=== PATIENT | male | born 1990 | race Caucasian/White ===

== ENCOUNTER 2023-02-25 11:54 | Outpatient (REF) | payer MEDICAID, SELFPAY ==
[2023-02-25 13:21] LABS: MANUAL DIFF FLAG NO
[2023-02-25 13:45] LABS: Basophils Absolute Auto 0.1 X10*3/uL (0.0-0.2); Basophils Percent Auto 0.5 % (0-2); Eosinophils Absolute Auto 0.2 X10*3/uL (0.0-0.4); Eosinophils Percent Auto 1.9 % (0-4); Hematocrit 44.5 % (42.0-52.0); Hemoglobin 15.2 g/dl (14.0-18.0); Imm Gran Abs Auto 0.04 X10*3/uL (0.00-0.03); Imm Gran Pct Auto 0.4 % (0.0-0.4); Lymphocytes Absolute Auto 1.8 X10*3/uL (1.2-4.9); Lymphocytes Percent Auto 18.3 % (20-40); Mean Corpuscular HGB Conc 34.2 g/dl (31.0-36.0); Mean Corpuscular Hemoglobin 34.9 pg (27.0-33.0); Mean Corpuscular Volume 102.1 fL (80.0-98.0); Mean Platelet Volume 10.3 fL (9.4-12.4); Monocytes Absolute Auto 0.9 X10*3/uL (0.1-1.2); Monocytes Percent Auto 9.4 % (2-11); Neutrophils Absolute Auto 6.6 x10*3/uL (2.0-8.3); Neutrophils Percent Auto 69.5 % (45-73); Platelet Count 302 X10*3/uL (160-400); Red Blood Count 4.36 X10*6/uL (4.60-5.80); Red Cell Distribution Width 11.9 % (11.0-16.0); White Blood Count 9.5 X10*3/uL (4.8-10.8)
[2023-02-25 14:18] LABS: Alanine Aminotransferase 32 U/L (0-40); Albumin Level 4.5 g/dL (3.5-5.0); Alkaline Phosphatase 62 U/L (39-117); Anion Gap 13 (12-20); Aspartate Amino Transferase 27 U/L (5-37); Bilirubin Total 0.5 mg/dL (0.0-1.0); Blood Urea Nitrogen 11 mg/dL (9-16); Calcium 9.1 mg/dL (8.4-10.2); Carbon Dioxide 28 mmol/L (22-29); Chloride 105 mmol/L (96-108); Estimated Glomerular Filt Rate > 60; Glucose Random 78 mg/dL (60-115); Sodium 142 mmol/L (135-145); Total Protein 7.5 g/dL (6.5-8.0)
[2023-02-26 13:48] LABS: HIV RNA PCR Qn Copies 69 copies/mL (NOT DETECTED); HIV RNA PCR Qn Log Copies 1.84 (NOT DETECTED)
[2023-02-27 07:03] LABS: Absolute CD3 Count 1430 cells/uL (840-3060); Absolute CD4 Count 876 cells/uL (490-1740); Absolute CD8 Count 509 cells/uL (180-1170); Absolute Lymphocytes 1855 cells/uL (850-3900); CD4 CD8 Ratio 1.72 (0.86-5.00); Percent CD3 Cells 77 % (57-85); Percent CD4 Cells 47 % (30-61); Percent CD8 Cells 27 % (12-42)
[2023-02-27 12:19] LABS: RPR Rapid Plasma Reagin REACTIVE (NON-REACTIVE)
== END 2023-02-25 11:55 | disposition home or self-care (01) ==
LOC: HO.HHCL 11:54
PROVIDERS: Visit Provider Internal Medicine
DX: B20 Human immunodeficiency virus [HIV] disease (principal)
CPT/HCPCS: 36415; 80053; 85025; 86359; 86360; 86592; 86593; 87536

== ENCOUNTER 2023-04-03 11:50 | Outpatient (REF) | payer MEDICAID, SELFPAY ==
[2023-04-04 03:58] LABS: CT PCR NOT DETECTED (Not Detect.); NG PCR NOT DETECTED (Not Detect.)
[2023-04-07 14:53] LABS: N. gonorrhoeae RNA TMA, Throat NOT DETECTED
== END 2023-04-03 11:51 | disposition home or self-care (01) ==
LOC: HO.HHCL 11:50
PROVIDERS: Visit Provider Internal Medicine
DX: Z11.3 Encounter for screening for infections with a predominantly sexual mode of transmission (principal); J02.9 Acute pharyngitis, unspecified
CPT/HCPCS: 0353U; 36415; 87591

== ENCOUNTER 2023-04-04 17:58 | Outpatient (REF) | payer MEDICAID, SELFPAY | END 2023-04-04 17:59 | disposition home or self-care (01) | LOC: HO.HHCLNP 17:58 | PROVIDERS: Visit Provider Internal Medicine | DX: Z13.89 Encounter for screening for other disorder (principal) ==

== ENCOUNTER 2023-07-02 18:40 | Emergency (ER) | payer OTHER, SELFPAY ==
--- NOTE | ~2023-07-02 | XR_ITS ---
EXAMINATION: XR LUMBOSACRAL SPINE CLINICAL INFORMATION: Low back pain COMPARISON: None available. TECHNIQUE: Three views of the lumbosacral spine. FINDINGS: The vertebral bodies and posterior elements are normal. The disc spaces are preserved and the vertebral alignment is normal. The paraspinal soft tissues are normal. XR/XR lumbar spine 2-3V IMPRESSION: Unremarkable examination.
[2023-07-02 19:16] VITALS: BP 111/66; PULSE 91; RESP 18; TEMP 36.7; O2SAT 98; BMI 21.8
--- NOTE | 2023-07-02 19:16 | ED_ITS ---
HPI - Back Pain/Injury General Chief Complaint: Back Pain/Injury Stated Complaint: lower back pain Time Seen by Provider: 07/02/23 20:09 Source: patient Mode of arrival: ambulatory Limitations: no limitations History of Present Illness HPI Narrative: Patient is a 32-year-old male presenting to the emergency department with complaint of low back pain for the past 2 weeks after moving something at work. [place] a crack sensation at that time and pain since. Pain radiating down left leg to knee. Denies saddle anesthesia or bowel or bladder incontinence. Denies fevers or IV drug use. Has been taking Tylenol. MD elicited complaint: back pain Onset (ago): week(s) Timing: constant Severity: severe Similar Symptoms Previously: No Quality: burning Location: left lower back Radiation: left upper leg Context: while lifting Associated symptoms: denies other symptoms Treatments prior to arrival: acetaminophen Work related injury: Yes Related Data Previous Rx's Medication Instructions Recorded lidocaine 5 % topical patch 1 patch topical DAILY #15 ea 07/02/23 naproxen 500 mg tablet 500 mg PO BID #14 tabs 07/02/23 prednisone 20 mg tablet 40 mg (2 x 20 mg) PO DAILY #10 tabs 07/02/23 Allergies Allergy/AdvReac Type Severity Reaction Status Date / Time No Known Allergies Allergy Verified 07/02/23 19:16 Review of Systems Review of Systems: As per HPI. Yes all other systems are reviewed and are negative Constitutional: Constitutional: Reports as per HPI Physical Exam Vital Signs: Vital Signs: Last Vital Signs Temp 98.1 F 07/02/23 19:16 Pulse 91 07/02/23 19:16 Resp 18 07/02/23 19:16 BP 111/66 07/02/23 19:16 Pulse Ox 98 07/02/23 19:16 BMI result Body Mass Index 21.8 Vital signs have been reviewed and appear to be correct. Blood pressure normal. Heart rate normal. Respiratory rate normal. Temperature normal. Oxygen saturation normal. Const: General: cooperative, healthy appearing and no acute distress Orientation/consciousness: oriented to person, oriented to place, oriented to time and patient oriented x3 Limitations: no limitations HEENT: Head: Yes normocephalic and Yes atraumatic Ears: external ears normal General nose exam: Normal external nose present Face and sinus: Yes face symmetric Mouth: oropharynx normal and moist mucous membranes Throat: Yes uvula midline Eyes: Pupils: Equal, round and reactive pupils present Neck: Neck: Yes normal visual inspection, Yes no meningeal signs and Yes supple Resp: Effort & Inspection: normal respiratory effort and able to speak in complete sentences Auscultation: clear to auscultation bilaterally Cardio: Rate: regular rate Rhythm: regular rhythm Heart sounds: S1 normal heart sound present and S2 normal heart sound present GI: Palpation (GI): Soft to palpation and nontender Auscultation: normoactive bowel sounds : General: Yes no CVA tenderness Back/Spine/Pelvis: Back: no CVA tenderness Cervical Spine: normal cervical lordosis and cervical ROM normal Thoracic/Lumbar Spine: thoracic and lumbar spine normal to inspection, thoraco-lumbar ROM normal, pain with thoraco-lumbar ROM, paraspinal muscle tenderness on the left in the mid lumbar, No thoracic spinal tenderness, No lumbar spinal tenderness and straight leg raise positive left Skin: General skin exam: elasticity normal and turgor normal Neuro: General: oriented to person, oriented to place, oriented to time, patient oriented x3, gait normal, tone normal, moves all extremities, Normal light touch and pain sensation, no meningeal signs, no focal motor deficits, CN's II-XI intact bilaterally and deep tendon reflexes 2+ bilaterally Cranial nerves: Yes Equal, round and reactive pupils present Cognition (Neuro): normal cognition Motor exam (neuro): 5/5 motor strength present throughout, Normal motor muscle tone present throughout and Motor abnormalities not present Sensory Exam: Normal double simultaneous stimulation for sensation Extrem: General: Yes full ROM, Yes no pedal edema and Yes no calf tenderness Psych: Mental Status: mental status grossly normal Affect: normal affect Thought process: Normal thought process present Medical Decision Making Medical Decision Making MDM Narrative: Patient is a 32-year-old male presenting to the emergency department with complaint of low back pain for the past 2 weeks after moving something at work. On exam patient is awake, A+Ox3, VS WNL, afebrile, normal neurological exam without focal deficits, physical exam findings as above. Given reported symptoms and physical exam findings, initial differential includes lumbar radiculopathy, lumbar strain, vertebral fracture, disc herniation. Do not suspect malignancy/mass, SEA, cauda equina/cord compression. X-ray lumbar spine is unremarkable, no evidence of fracure. My interpretation is in agreement with the radiologist's interpretation. Will treat patient with course of prednisone, naproxen, and topical lidocaine patches. Instructed patient to follow up with PCP and patient states he has appointment with PCP tomorrow. Return precautions discussed. Patient verbalized understanding of and agreement with plan. Differential Diagnosis Differential Diagnoses: The differential diagnosis associated with the presentation includes As per MDM Independent Interpretation I performed an independent interpretation of an: Plain X-Ray Interpretation: No evidence of vertebral fracture Radiology Impression Discussion of test interpretation with radiology: I have reviewed the radiologist's reading. Radiologist Impression: XR/XR lumbar spine 2-3V IMPRESSION: Unremarkable examination. External Record Review External record reviewed: Inpatient record, Office record and Outpatient record Prescription Management I considered prescription management with: Pain Medication and Other Discharge Plan Discharge Clinical Impression: Lumbar radiculopathy Patient Disposition: Home, Self-Care Instructions: Acute Low Back Pain (ED), Lumbar Radiculopathy (ED), Lower Back Exercises (ED) Additional Instructions: You were evaluated in the emergency department today for back pain. Your evaluation did not show signs of medical conditions requiring emergent intervention at this time. We recommended that you use ibuprofen or Tylenol per package directions every 6 hours as needed for pain. If necessary, you can alternate these medications so that you take one medication every 3 hours. For instance, at noon take ibuprofen, then at 3:00 p.m. take Tylenol, then at 6:00 p.m. take ibuprofen. You have been prescribed a short course of steroids to decrease inflammation. You have been prescribed 5% topical lidocaine patches which you can wear for up to 12 hours in a 24 hour period. Do not apply heat directly over the patches. Please schedule an appointment for follow-up with your primary care physician this week for further evaluation of your symptoms. Return to the emergency department if you experience worsening back pain, difficulty walking, fevers, numbness, tingling, incontinence, groin numbness or tingling, or any other concerning symptoms. Prescriptions: New prednisone 20 mg tablet 40 mg PO DAILY Qty: 10 0RF lidocaine 5 % adhesive patch,medicated 1 patch topical DAILY Qty: 15 0RF Rx Instructions: leave on most painful area for up to 12 hrs naproxen 500 mg tablet 500 mg PO BID Qty: 14 0RF
== END 2023-07-02 20:27 | disposition home or self-care (01) ==
PROVIDERS: Emergency Provider Emergency Medicine Emergency Medical Services
DX: M54.16 Radiculopathy, lumbar region (principal)
CPT/HCPCS: 72100; 99283; 99284

== ENCOUNTER 2023-08-29 19:35 | Outpatient (REF) | payer OTHER, SELFPAY | END 2023-08-29 19:36 | disposition home or self-care (01) | LOC: HO.HHCLNP 19:35 | PROVIDERS: Visit Provider Emergency Medicine | DX: J02.9 Acute pharyngitis, unspecified (principal) | CPT/HCPCS: 87070; 87147 ==

== ENCOUNTER 2023-09-22 09:00 | Outpatient (REF) | payer OTHER, SELFPAY ==
[2023-09-22 11:30] LABS: MANUAL DIFF FLAG NO
[2023-09-22 11:42] LABS: Basophils Percent Auto 0.5 % (0-2); Eosinophils Absolute Auto 0.1 X10*3/uL (0.0-0.4); Eosinophils Percent Auto 1.6 % (0-4); Hematocrit 45.7 % (42.0-52.0); Hemoglobin 16.2 g/dl (14.0-18.0); Imm Gran Abs Auto 0.03 X10*3/uL (0.00-0.03); Imm Gran Pct Auto 0.3 % (0.0-0.4); Lymphocytes Absolute Auto 3.1 X10*3/uL (1.2-4.9); Lymphocytes Percent Auto 34.7 % (20-40); Mean Corpuscular HGB Conc 35.4 g/dl (31.0-36.0); Mean Corpuscular Hemoglobin 34.2 pg (27.0-33.0); Mean Corpuscular Volume 96.6 fL (80.0-98.0); Mean Platelet Volume 10.3 fL (9.4-12.4); Monocytes Absolute Auto 0.7 X10*3/uL (0.1-1.2); Monocytes Percent Auto 7.5 % (2-11); Neutrophils Absolute Auto 4.9 x10*3/uL (2.0-8.3); Neutrophils Percent Auto 55.4 % (45-73); Platelet Count 357 X10*3/uL (160-400); Red Blood Count 4.73 X10*6/uL (4.60-5.80); Red Cell Distribution Width 11.7 % (11.0-16.0); White Blood Count 8.8 X10*3/uL (4.8-10.8)
[2023-09-22 12:13] LABS: Alanine Aminotransferase 38 U/L (0-40); Albumin Level 4.5 g/dL (3.5-5.0); Alkaline Phosphatase 71 U/L (39-117); Anion Gap 14 (12-20); Aspartate Amino Transferase 29 U/L (5-37); Bilirubin Total 0.6 mg/dL (0.0-1.0); Blood Urea Nitrogen 10 mg/dL (9-16); Calcium 9.6 mg/dL (8.4-10.2); Carbon Dioxide 26 mmol/L (22-29); Chloride 105 mmol/L (96-108); Cholesterol 173 mg/dL (<200); Estimated Glomerular Filt Rate > 60; Glucose Random 95 mg/dL (60-115); HDL Cholesterol 36 mg/dL (>40); LDL Cholesterol Calculated 102 mg/dL (<100); Potassium 4.1 mmol/L (3.3-5.1); Sodium 141 mmol/L (135-145); Total Protein 7.6 g/dL (6.5-8.0); Triglycerides 177 mg/dL (<150)
[2023-09-22 12:26] LABS: Reflex LDLD? No
[2023-09-23 09:28] LABS: ~HepC Num1 0.12 S/CO (0.00-0.79); ~Hepatitis C Antibody Nonreactive (Nonreactive)
[2023-09-23 10:58] LABS: Absolute CD3 Count 2651 cells/uL (840-3060); Absolute CD4 Count 1655 cells/uL (490-1740); Absolute CD8 Count 905 cells/uL (180-1170); Absolute Lymphocytes 3308 cells/uL (850-3900); CD4 CD8 Ratio 1.83 (0.86-5.00); Percent CD3 Cells 80 % (57-85); Percent CD4 Cells 50 % (30-61); Percent CD8 Cells 27 % (12-42)
[2023-09-24 10:44] LABS: HIV RNA PCR Qn Copies 297 copies/mL (NOT DETECTED); HIV RNA PCR Qn Log Copies 2.47 (NOT DETECTED)
[2023-09-25 08:04] LABS: TS Negative Control Passed; TS Panel A 0; TS Panel B 0; TS Positive Control Passed; TSpotTB Negative (Negative)
== END 2023-09-22 09:01 | disposition home or self-care (01) ==
LOC: HO.HHCL 09:00
PROVIDERS: Visit Provider Internal Medicine
DX: B20 Human immunodeficiency virus [HIV] disease (principal)
CPT/HCPCS: 36415; 80053; 80061; 85025; 86359; 86360; 86481; 86803; 87536

== ENCOUNTER 2023-10-09 15:58 | Outpatient (REF) | payer OTHER, SELFPAY ==
[2023-10-10 16:45] LABS: Appearance Urine Clear; Color Urine Yellow; Glucose Urine UA Negative (Negative); Leukocyte Esterase Urine Negative (Negative); Nitrite Urine Negative (Negative); Specific Gravity - Urine 1.025 (1.005-1.025); Urine Blood Negative (Negative); Urine Ketones Negative (Negative); Urine Protein Negative (Neg-Trace)
[2023-10-10 16:48] LABS: Bacteria Urine None Seen (None Seen); Hyaline Casts Urine 0-2 /LPF (0-2); RBC Urine 0-2 /HPF (0-2); Squamous Epithelial Cell Urine 0-2 /HPF (0-2); WBC Urine 0-5 /HPF (0-5)
[2023-10-10 18:01] LABS: CT PCR NOT DETECTED (Not Detect.); NG PCR NOT DETECTED (Not Detect.)
[2023-10-14 13:58] LABS: C. Trachomatis RNA TMA, Throat NOT DETECTED; N. gonorrhoeae RNA TMA, Throat NOT DETECTED
[2023-10-15 11:29] LABS: C.Trachomatis RNA TMA, Rectal NOT DETECTED; N.Gonorrhoeae RNA TMA, Rectal NOT DETECTED
== END 2023-10-09 15:59 | disposition home or self-care (01) ==
LOC: HO.HHCLNP 15:58
PROVIDERS: Visit Provider Student in an Organized Health Care Education/Training Program
DX: Z00.00 Encounter for general adult medical examination without abnormal findings (principal)
CPT/HCPCS: 0353U; 81001; 87491; 87591

== ENCOUNTER 2023-11-20 09:05 | Outpatient (REF) | payer OTHER, SELFPAY ==
[2023-11-20 11:25] LABS: Appearance Urine Clear; Color Urine Yellow; Glucose Urine UA Negative (Negative); Leukocyte Esterase Urine Negative (Negative); Nitrite Urine Negative (Negative); Specific Gravity - Urine <= 1.005 (1.005-1.025); Urine Blood Negative (Negative); Urine Ketones Negative (Negative); Urine Protein Negative (Neg-Trace)
[2023-11-20 11:30] LABS: Bacteria Urine None Seen (None Seen); Hyaline Casts Urine 0-2 /LPF (0-2); RBC Urine 0-2 /HPF (0-2); Squamous Epithelial Cell Urine 0-2 /HPF (0-2); WBC Urine 0-5 /HPF (0-5)
[2023-11-20 11:35] LABS: Estimated Average Glucose 85 mg/dL; Hemoglobin A1c % 4.6 % (<6.0)
[2023-11-20 11:56] LABS: TSH reflex Free T4 3.48 uIU/mL (0.32-4.0)
[2023-11-20 12:00] LABS: Hepatitis A Antibody IgG Nonreactive (Nonreactive); ~Hepatitis A Antibody IgG 0.35 S/CO (0.00-0.99)
[2023-11-20 12:02] LABS: Syphilis Screen Reactive (Nonreactive)
[2023-11-20 12:20] LABS: HBc Num1 0.09 S/CO (0.00-0.79); HBsAGNum1 0.37 S/CO (0.00-0.99); Hepatitis B Core Antibody Nonreactive (Nonreactive); Hepatitis B Surface Antigen Negative (Negative); ~Hepatitis B Surface Antibody REACTIVE (Nonreactive)
[2023-11-27 14:50] LABS: RPR Quantitative Reactive 1:8 (Nonreactive); T.Pallidum Particle Agg Test Reactive (Nonreactive)
== END 2023-11-20 09:06 | disposition home or self-care (01) ==
LOC: HO.HHCL 09:05
PROVIDERS: Internal Medicine; Visit Provider Student in an Organized Health Care Education/Training Program
DX: Z00.00 Encounter for general adult medical examination without abnormal findings (principal); B20 Human immunodeficiency virus [HIV] disease; Z13.1 Encounter for screening for diabetes mellitus
CPT/HCPCS: 36415; 81001; 83036; 84443; 86592; 86704; 86706; 86708; 86780; 87340

== ENCOUNTER 2024-02-20 18:36 | Emergency (ER) | payer OTHER, SELFPAY ==
[2024-02-20 18:38] VITALS: BP 120/69; PULSE 90; RESP 18; TEMP 36.4; O2SAT 96; BMI 22.7
--- NOTE | 2024-02-20 20:22 | ED.BURNSMOKE ---
HPI - Burn/Smoke Inhalation General Chief complaint: Burn/Smoke Inhalation Stated complaint: right leg burn Time Seen by Provider: 02/20/24 20:07 Source: patient Mode of arrival: ambulatory Limitations: no limitations History of Present Illness HPI Narrative: Patient comes to the emergency room complaining of a burn to the right lower extremity on the anterior aspect. Patient states that earlier today, approximately 12 hours ago, patient was cooking, spilled grease down his leg. Patient states that he applied baby's barrier cream and Vaseline. Patient states that he got his Tdap booster approximately 2 years ago. Patient denies any other injuries. Related Data Previous Rx's ?Medication ?Instructions ?Recorded lidocaine 5 % topical patch 1 patch topical DAILY #15 ea 07/02/23 naproxen 500 mg tablet 500 mg PO BID #14 tabs 07/02/23 prednisone 20 mg tablet 40 mg (2 x 20 mg) PO DAILY #10 tabs 07/02/23 bacitracin 500 unit/gram topical 1 appl topical TID #28 grams 02/20/24 ointment ibuprofen 600 mg tablet 600 mg PO Q8H PRN fever or pain 02/20/24 #20 tabs Allergies Allergy/AdvReac Type Severity Reaction Status Date / Time No Known Allergies Allergy Verified 02/20/24 18:41 Review of Systems Review of Systems: Constitutional : No Weight loss, No Fever, No Chills, No Night Sweats, No Fatigue, No Malaise ENT/Mouth : No Hearing loss, No Ear Pain, No Nasal Congestion, No Sinus Pain, No Hoarseness, No sore throat, No Rhinorrhea, No Swallowing Difficulty Eyes: No Eye Pain, No Swelling, No Redness, No Foreign Body, No Discharge, No Vision Changes Cardiovascular : No Chest Pain, No SOB, No Dyspnea on Exertion, No Orthopnea, No Edema, No Palpitations Respiratory : No Cough, No Sputum, No Wheezing, No Smoke Exposure, No Dyspnea Gastrointestinal : No Nausea, No Vomiting, No Diarrhea, No Constipation, No abdominal Pain, No Hematochezia, No Melena Genitourinary : no irregular bleeding, No Dysuria, No Urinary Frequency, No Hematuria, No Urinary Incontinence, No Urgency, No Flank Pain, No Urinary Flow Changes, No Hesitancy Musculoskeletal : No joint pain, No Myalgias, No Joint Swelling Skin : Complaining of skin burn with grease on the anterior aspect of the right leg Neuro : No Weakness, No Numbness, No Paresthesias, No Loss of Consciousness, No Dizziness, No Headache Psych : No Anxiety/Panic, No Depression, No SI/HI/AH/VH, No Social Issues, Heme/Lymph: No Bruising, No Bleeding,No Lymphadenopathy Endocrine : No Polyuria, No Polydipsia, No Temperature Intolerance PMFSH Social History Social History Advance Directives: No Advance Directives Information Provided: Yes Do you have a plan to hurt others: No Plan Physical Exam Vital Signs: Vital Signs: Last Vital Signs Temp 97.6 F 02/20/24 18:38 Pulse 90 02/20/24 18:38 Resp 18 02/20/24 18:38 BP 120/69 02/20/24 18:38 Pulse Ox 96 02/20/24 18:38 O2 Del Method Room Air 02/20/24 18:38 BMI result Body Mass Index 22.7 Const: Other: Appearance: Alert. Oriented X3. No acute distress. Eyes: Pupils equal, round and reactive to light. ENT: Pharynx normal. Neck: Normal inspection. Neck supple. No lymph nodes noted. No crepitus CVS: Normal heart rate and rhythm. Pulses normal. Normal S1 and S2 Respiratory: No respiratory distress. Breath sounds normal. No Wheezing. No rales Abdomen: Soft and nontender. No rigidity. No distention. Skin: Skin warm and dry. Normal skin color. Normal skin turgor. See lower extremity below Extremities: No lower extremity edema. Left leg within normal limits, right leg there blisters along the vicente area, no harrington to the posterior aspect, not a circumferential burn Neuro: Oriented X 3. No motor deficit. No sensory deficit. Moving all extremities. No slurred speech. CN 2 through 12 grossly intact Psych: calm, cooperative, normal affect Medical Decision Making Medical Decision Making MDM Narrative: Patient has a second-degree burn to the anterior aspect of the right lower extremity. Patient is up-to-date with Tdap Patient declined IM medication for pain control -the ED, patient's was cleaned, which was covered with Vaseline and barrier cream. Then, bacitracin was applied. Discharge Plan Discharge Clinical Impression: Thermal injury, Skin burn Patient Disposition: Home, Self-Care Instructions: Second Degree Burn (ED) Additional Instructions: Please follow-up with your primary care physician tomorrow. If you have any worsening or new symptoms, please return to the emergency room or call 911 Prescriptions: New bacitracin 500 unit/gram ointment 1 appl topical TID Qty: 28 0RF ibuprofen 600 mg tablet 600 mg PO Q8H PRN (Reason: fever or pain) Qty: 20 0RF No Action prednisone 20 mg tablet 40 mg PO DAILY Qty: 10 0RF lidocaine 5 % adhesive patch,medicated 1 patch topical DAILY Qty: 15 0RF Rx Instructions: leave on most painful area for up to 12 hrs naproxen 500 mg tablet 500 mg PO BID Qty: 14 0RF Print Language: Montserratian
[2024-02-20 20:23] VITALS: BP 109/72; PULSE 81; RESP 14; TEMP 36.1; O2SAT 97
[2024-02-20] MEDS: Bacitracin Oint 0.9 GM PACKET 2 APPL TOPICAL (20:40)
[2024-02-20 20:59] VITALS: BP 109/72; PULSE 81; RESP 14; TEMP 36.1; O2SAT 97
== END 2024-02-20 20:59 | disposition home or self-care (01) ==
PROVIDERS: Emergency Provider Emergency Medicine; PCP Student in an Organized Health Care Education/Training Program
DX: T24.001A Burn of unspecified degree of unspecified site of right lower limb, except ankle and foot, initial encounter (principal); X19.XXXA Contact with other heat and hot substances, initial encounter
CPT/HCPCS: 99283

== ENCOUNTER 2024-03-18 14:17 | Outpatient (REF) | payer OTHER, SELFPAY ==
[2024-03-18 16:13] LABS: MANUAL DIFF FLAG NO
[2024-03-18 16:21] LABS: Basophils Percent Auto 0.4 % (0-2); Eosinophils Absolute Auto 0.1 X10*3/uL (0.0-0.4); Eosinophils Percent Auto 0.8 % (0-4); Hematocrit 44.5 % (42.0-52.0); Hemoglobin 15.5 g/dl (14.0-18.0); Imm Gran Abs Auto 0.03 X10*3/uL (0.00-0.03); Imm Gran Pct Auto 0.3 % (0.0-0.4); Lymphocytes Percent Auto 29.9 % (20-40); Mean Corpuscular HGB Conc 34.8 g/dl (31.0-36.0); Mean Corpuscular Hemoglobin 33.5 pg (27.0-33.0); Mean Corpuscular Volume 96.1 fL (80.0-98.0); Mean Platelet Volume 10.1 fL (9.4-12.4); Monocytes Absolute Auto 0.6 X10*3/uL (0.1-1.2); Monocytes Percent Auto 6.1 % (2-11); Neutrophils Absolute Auto 6.2 x10*3/uL (2.0-8.3); Neutrophils Percent Auto 62.5 % (45-73); Platelet Count 303 X10*3/uL (160-400); Red Blood Count 4.63 X10*6/uL (4.60-5.80)
[2024-03-18 18:11] LABS: Alanine Aminotransferase 61 U/L (0-40); Albumin Level 4.7 g/dL (3.5-5.0); Alkaline Phosphatase 71 U/L (39-117); Anion Gap 14 (12-20); Aspartate Amino Transferase 35 U/L (5-37); Bilirubin Total 0.3 mg/dL (0.0-1.0); Blood Urea Nitrogen 10 mg/dL (9-16); Calcium 9.1 mg/dL (8.4-10.2); Carbon Dioxide 28 mmol/L (22-29); Chloride 102 mmol/L (96-108); Estimated Glomerular Filt Rate > 60; Glucose Random 86 mg/dL (60-115); Potassium 3.6 mmol/L (3.3-5.1); Sodium 140 mmol/L (135-145); Total Protein 7.7 g/dL (6.5-8.0)
[2024-03-20 07:33] LABS: HIV RNA PCR Qn Copies NOT DETECTED copies/mL (NOT DETECTED); HIV RNA PCR Qn Log Copies NOT DETECTED (NOT DETECTED)
[2024-03-22 22:44] LABS: Absolute CD3 Count 2354 cells/uL (840-3060); Absolute CD4 Count 1350 cells/uL (490-1740); Absolute CD8 Count 885 cells/uL (180-1170); Absolute Lymphocytes 3003 cells/uL (850-3900); CD4 CD8 Ratio 1.53 (0.86-5.00); Percent CD3 Cells 78 % (57-85); Percent CD4 Cells 45 % (30-61); Percent CD8 Cells 29 % (12-42)
== END 2024-03-18 14:18 | disposition home or self-care (01) ==
LOC: HO.HHCL 14:17
PROVIDERS: Visit Provider Internal Medicine
DX: B20 Human immunodeficiency virus [HIV] disease (principal)
CPT/HCPCS: 36415; 80053; 85025; 86359; 86360; 87536

== ENCOUNTER 2024-04-08 21:26 | Emergency (ER) | payer OTHER, SELFPAY ==
[2024-04-08 21:32] VITALS: BP 122/77; PULSE 102; RESP 18; TEMP 36.8; O2SAT 95; BMI 23.1
== END 2024-04-09 00:47 | disposition left against medical advice (07) ==
PROVIDERS: Emergency Provider Internal Medicine; PCP Student in an Organized Health Care Education/Training Program
DX: M79.642 Pain in left hand (principal)
CPT/HCPCS: 99281

== ENCOUNTER 2024-10-26 13:16 | Outpatient (REF) | payer OTHER, SELFPAY ==
--- OUTSIDE RECORDS SUMMARY | 2024-10-26 15:12 | XMS_ITS | Data Portability ---
Author Organization ID - [facility], Allergy Address [address] [place] [id number] Care Team Providers Care Director Of Strategic Marketing Name Role Phone NAME, DELBERT Primary Care Provider Assessment Encounter Date Assessment Date Assessment LastModified by Organization Details LastModified Time 03/29/2024 03/29/2024 Patient describes history of sleep disordered breathing with snoring, mouth breathing and gasping arousals. Recommend further evaluation with sleep study. Follow-up to review results. On physical exam he has a significant septal deviation to the right side with near complete obstruction. He does not recall history of nasal trauma. Will await findings of the sleep study before discussing intervention. He is not particularly bothered by the decreased airflow that we discussed today [email or web address] Not available 03/29/2024 11:53:23 06/08/2024 06/08/2024 Patient describes history of sleep disordered breathing with snoring, mouth breathing and gasping arousals. PSG results AHI 2. Recommend oral appliance On physical exam he has a significant septal deviation to the right side with near complete obstruction. He does not recall history of nasal trauma. He is not particularly bothered by the decreased airflow that we discussed today [email or web address] Not available 06/08/2024 15:23:02 Plan of Treatment Reminders Order Date Submit Date Provider Last Modified By Organization Details Last Modified Time Details Appointments None recorde d. Lab None recorde d. Referral None recorde d. Procedures None recorde d. Surgeries None recorde d. Imaging polysom nogram, diagnos tic, 6 yrs or older 024 03/29/20 24 [facility], [facility] [place], [address], 15:57:52 Medication Orders None recorde d. Patient TargetsNo targets recorded. Patient InstructionsNo instructions recorded. Reason for Referral None Reported. Results Created Date Observation Date Name Description Value Unit Range Abnormal Flag Note LastModifiedBy Organization Detail LastModifiedTime 06/08/1904/26/2024 polys omnog luis armando, diagn ostic , 6 yrs or older No observ ation record ed. [facility] [address] [place], [address], 06/08/2024 17:01:57 06/08/1904/26/2024 sleep study , diagn ostic (PROC ) No observ ation record ed. [email or web address] Not Available 08/2024 15:25:33 Result Notes None recorded. Problems Name Problem SNOMED Code Status Onset Date Resolution Date Notes Provider Name and Address Organization Details Recorded Time Obstructive sleep apnea syndrome 46956088 Active 2023 JOSE MARIA WEEKS MD [address] [place] [address], [place], [phone], [facility] - [facility] 11:52:22 Deviated nasal septum 134002487 Active 2023 JOSE MARIA WEEKS MD [address] [place] [address], [place], [phone], [facility] - [facility] 11:52:27 Snoring 86434137 Active 2024 JOSE MARIA WEEKS MD [address] [place] [address], [phone], [facility] - [facility] 15:23:06 Problem Notes None recorded. Medical Equipment None Reported. Allergies No known drug allergies Medications Not known to be on any medication Vitals Date Recorded Body height Body mass index (BMI) Body weight Provider Name and Address Organization Details Last Updated DateTime 06/08/2024 167.64 cm 23.4 kg/m2 42079.89 g Kamala Sandoval ID - [facility] 06/08/2024 15:18:01 Date Recorded Body height Body mass index (BMI) Body weight Provider Name and Address Organization Details Last Updated DateTime 03/29/2024 167.64 cm 22.6 kg/m2 13682.93 g Elida Roberson [place] - [facility] 03/29/2024 11:43:10 Social History None recorded. Functional Status None recorded. Mental Status None recorded. Family History Nothing Reported. Medical History Condition Response Asthma Y Past Encounters Encounter ID Performer Location Encounter Start Date Encounter Closed Date Diagnosis/Indication Diagnosis SNOMED-CT Code Diagnosis ICD10 Code Diagnosis Note [id number] JOSE MARIA WEEKS MD [facility] [address] [address] 03/29/2024 10:57:54 03/29/2024 11:52:54 Obstructive sleep apnea syndrome 50064644 G47.33 Deviated nasal septum 12 9204346 J34.2 [id number] JOSE MARIA WEEKS MD [facility] [address] [address] 06/08/2024 15:04:58 06/08/2024 15:24:17 Deviated nasal septum 721449504 J34.2 without sig symptoms, no interventi on advised at present time Snoring 59503893 R06.83 oral appliance recommende d Health Concerns Section Related Observation LastModified by Organization Detai ls LastModified Time None Recorded Concern Status LastModified by Organization Details LastModified Time None Recorded Advance Directives Directive None Recorded Payers Insurance Date Sequence Insurance Name Policy Number Policy Curry Covered Member ID Curry Member ID Guarantor Name 03/29/2024 1 [facility] Retrevo PLAN (O) [id number] Gilberto Fraser [id number] Gilberto Fraser 08/30/2024 1 [facility] [employer] - DIRECT CONNECTORCARE TYPE I (O) [id number] Gilberto Fraser [id number] Gilberto Fraser Notes Date Note Type Note Provider Name and Address Organization Details Recorded Time 03/29/2024 text/html +Snoringmouth breathinghas gasping arousals - family complained on a vacationhas been [place] but did not get a workupno prior PSGweight stableno surgery on throatpoor airflow through right nose - cannot recall trauma to nose JOSE MARIA WEEKS MD [address] [facility],[place] [address], [place], [address], [place] - [facility] 03/29/2024 11:53:49 06/08/2024 text/html +Snoringmouth breathinghas gasping arousals - family complained on a vacationhas been present for a long tim[place]oved [place] but did not get a workupweight stableno surgery on throatpoor airflow through right nose - cannot recall trauma to nose 04/26/2024 PSG at [facility] BMI 22.6 AHI 2 Central and mixed 2 of 78 events PV 03/29/24 Joseph snoring, PSG requested. dev septum noted JOSE MARIA WEEKS MD [address] [facility] [address], [place], [address], [place] - [facility] 06/08/2024 15:23:45
[2024-10-26 16:12] LABS: MANUAL DIFF FLAG NO
[2024-10-26 16:18] LABS: Basophils Percent Auto 0.5 % (0-2); Eosinophils Absolute Auto 0.2 X10*3/uL (0.0-0.4); Hematocrit 45.8 % (42.0-52.0); Hemoglobin 16.3 g/dl (14.0-18.0); Imm Gran Abs Auto 0.02 X10*3/uL (0.00-0.03); Imm Gran Pct Auto 0.3 % (0.0-0.4); Lymphocytes Absolute Auto 2.5 X10*3/uL (1.2-4.9); Lymphocytes Percent Auto 34.2 % (20-40); Mean Corpuscular HGB Conc 35.6 g/dl (31.0-36.0); Mean Corpuscular Volume 95.4 fL (80.0-98.0); Mean Platelet Volume 10.4 fL (9.4-12.4); Monocytes Absolute Auto 0.6 X10*3/uL (0.1-1.2); Monocytes Percent Auto 7.8 % (2-11); Neutrophils Percent Auto 55.2 % (45-73); Platelet Count 294 X10*3/uL (160-400); Red Cell Distribution Width 11.9 % (11.0-16.0); White Blood Count 7.3 X10*3/uL (4.8-10.8)
[2024-10-26 16:27] LABS: Alanine Aminotransferase 60 U/L (0-40); Albumin Level 4.6 g/dL (3.5-5.0); Alkaline Phosphatase 62 U/L (39-117); Anion Gap 13 (12-20); Aspartate Amino Transferase 33 U/L (5-37); Bilirubin Total 0.7 mg/dL (0.0-1.0); Blood Urea Nitrogen 11 mg/dL (9-16); Calcium 9.5 mg/dL (8.4-10.2); Carbon Dioxide 28 mmol/L (22-29); Chloride 104 mmol/L (96-108); Cholesterol 168 mg/dL (<200); Estimated Glomerular Filt Rate > 60; Glucose Random 112 mg/dL (60-115); HDL Cholesterol 37 mg/dL (>40); LDL Cholesterol Calculated 90 mg/dL (<100); Potassium 3.9 mmol/L (3.3-5.1); Sodium 141 mmol/L (135-145); Total Protein 7.2 g/dL (6.5-8.0); Triglycerides 206 mg/dL (<150)
[2024-10-26 17:20] LABS: Reflex LDLD? No
[2024-10-27 14:08] LABS: RPR Rapid Plasma Reagin REACTIVE (NON-REACTIVE)
[2024-10-27 18:03] LABS: HIV RNA PCR Qn Copies <20 DETECTED copies/mL (NOT DETECTED); HIV RNA PCR Qn Log Copies <1.30 DETECTED (NOT DETECTED)
[2024-10-28 19:54] LABS: TS Negative Control Passed; TS Panel A 1; TS Panel B 0; TS Positive Control Passed; TSpotTB Negative (Negative)
[2024-10-30 15:29] LABS: Absolute CD3 Count 1905 cells/uL (840-3060); Absolute CD4 Count 975 cells/uL (490-1740); Absolute CD8 Count 815 cells/uL (180-1170); Absolute Lymphocytes 2561 cells/uL (850-3900); Percent CD3 Cells 74 % (57-85); Percent CD4 Cells 38 % (30-61); Percent CD8 Cells 32 % (12-42)
== END 2024-10-26 13:17 | disposition home or self-care (01) ==
LOC: HO.HHCL 13:16
PROVIDERS: PCP Student in an Organized Health Care Education/Training Program; Visit Provider Internal Medicine
DX: B20 Human immunodeficiency virus [HIV] disease (principal)
CPT/HCPCS: 36415; 80053; 80061; 85025; 86359; 86360; 86481; 86592; 86593; 87536

== ENCOUNTER 2024-11-22 14:24 | Outpatient (REF) | payer OTHER, SELFPAY ==
--- OUTSIDE RECORDS SUMMARY | 2024-11-22 15:14 | XMS_ITS | Data Portability ---
Author Organization [place] - [facility], Allergy Address [address] [place] [id number] Care Team Providers Care Crusher Supervisor Name Role Phone NAME, DELBERT Primary Care [...] 6 yrs or older 024 03/29/20 24 [facility], [facility] [place], [address], 15:57:52 Medication Orders None recorde d. Patient TargetsNo targets recorded. Patient InstructionsNo instructions recorded. Reason for Referral None Reported. Results Created Date Observation Date Name Description Value Unit Range Abnormal Flag Note LastModifiedBy Organization Detail LastModifiedTime 06/08/1904/26/2024 polys omnog luis armando, diagn ostic , 6 yrs or older No observ ation record ed. [facility] [address] [place], [address], 06/08/2024 17:01:57 06/08/1904/26/2024 sleep study , diagn ostic (PROC ) No observ ation record ed. [email or web address] Not Available 08/2024 15:25:33 Result Notes None recorded. Problems Name Problem SNOMED Code Status Onset Date Resolution Date Notes Provider Name and Address Organization Details Recorded Time Obstructive sleep apnea syndrome 84290458 Active 2023 JOSE MARIA WEEKS MD [address] [place] [address], [place], [phone], [facility] - [facility] 11:52:22 Deviated nasal septum 666415179 Active 2023 JOSE MARIA WEEKS MD [address] [place] [address], [place], [phone], [facility] [place] 11:52:27 Snoring 74564987 Active 2024 JOSE MARIA WEEKS MD [address] [place] [address], [phone], [facility] - [facility] [place] 15:23:06 Problem Notes None recorded. Medical Equipment None Reported. Allergies No known drug allergies Medications Not known to be on any medication Vitals Date Recorded Body height Body mass index (BMI) Body weight Provider Name and Address Organization Details Last Updated DateTime 06/08/2024 167.64 cm 23.4 kg/m2 39519.89 g Kamala Sandoval [place] - [facility] [place] 06/08/2024 15:18:01 Date Recorded Body height Body mass index (BMI) Body weight Provider Name and Address Organization Details Last Updated DateTime 03/29/2024 167.64 cm 22.6 kg/m2 71051.93 g Elida Roberson [place] - [facility] 03/29/2024 11:43:10 Social History None recorded. Functional Status None recorded. Mental Status None recorded. Family History Nothing Reported. Medical History Condition Response Asthma Y Past Encounters Encounter ID Performer Location Encounter Start Date Encounter Closed Date Diagnosis/Indication Diagnosis SNOMED-CT Code Diagnosis ICD10 Code Diagnosis Note [id number] JOSE MARIA WEEKS MD [facility] [address] [address] 03/29/2024 10:57:54 03/29/2024 11:52:54 Obstructive sleep apnea syndrome 64750227 G47.33 Deviated nasal septum 12 4231658 J34.2 [id number] JOSE MARIA WEEKS MD [facility] [address] [address] 06/08/2024 15:04:58 06/08/2024 15:24:17 Deviated nasal septum 988156813 J34.2 without sig symptoms, no interventi on advised at present time Snoring 90019688 R06.83 oral appliance recommende d Health Concerns Section Related Observation LastModified by Organization Detai ls LastModified Time None Recorded Concern Status LastModified by Organization Details LastModified Time None Recorded Advance Directives Directive None Recorded Payers Insurance Date Sequence Insurance Name Policy Number Policy Curry Covered Member ID Curry Member ID Guarantor Name 03/29/2024 1 [facility] [email or web address] PLAN (O) [id number] Gilberto Fraser [id number] Gilberto Fraser 08/30/2024 1 [facility] [employer] - DIRECT CONNECTORCARE TYPE I ([id number]) [id number] Gilberto Fraser [id number] Gilberto Fraser Notes Date Note Type Note Provider Name and Address Organization Details Recorded Time 03/29/2024 text/html +Snoringmouth breathinghas gasping arousals - family complained on a vacation[place] not get a workupno prior PSGweight stableno surgery on throatpoor airflow through right nose - cannot recall trauma to nose JOSE MARIA WEEKS MD [address] [facility],[place] [address], [place], [address], [place] - [facility] [place] 03/29/2024 11:53:49 06/08/2024 text/html +Snoringmouth breathinghas gasping arousals - family complained on a vacationhas been [place] but did not get a workupweight stableno surgery on throatpoor airflow through right nose - cannot recall trauma to nose 04/26/2024 PSG at [facility] BMI 22.6 AHI 2 Central and mixed 2 of 78 events PV 03/29/24 Joseph snoring, PSG requested. dev septum noted JOSE MARIA WEEKS MD [address] [facility] [address], [place], [address], [place] - [facility] [place] 06/08/2024 15:23:45
[2024-11-22 16:34] LABS: Hemoglobin A1C 120.3501 umol/L; Total Hemoglobin (HGBA1C) 4338.1467 umol/L
== END 2024-11-22 14:25 | disposition home or self-care (01) ==
LOC: HO.HHCL 14:24
PROVIDERS: PCP Student in an Organized Health Care Education/Training Program; Visit Provider Internal Medicine
DX: R63.2 Polyphagia (principal)
CPT/HCPCS: 36415; 82947; 83036; 84443

== ENCOUNTER 2024-12-23 | Outpatient (REF) | payer OTHER, SELFPAY | END 2024-12-23 00:01 | disposition home or self-care (01) | LOC: HO.LNP | PROVIDERS: Visit Provider Internal Medicine | DX: Z13.89 Encounter for screening for other disorder (principal) | CPT/HCPCS: 88112 ==